=== PATIENT | male | born 1945 | race Caucasian/White ===

== ENCOUNTER 2018-08-24 11:22 | Day surgery (SDC) | payer OTHER, BC ==
[2018-08-24] MEDS ORDERED: ceFAZolin 2 GM/DEXTROSE 100 ML IV ONE (11:35)
[2018-08-24] MEDS ORDERED: ROPIVACAINE 0.2% 80 MG, EPINEPHrine 0.2 MG, KETOROLAC TROMETHAMINE 30 MG in SYRINGE 0 ML IU ONE (11:35)
[2018-08-24] MEDS ORDERED: TRANEXAMIC ACID 3,000 MG in NS (SYRINGE) 50 ML IRR ONE (11:35)
[2018-08-24] MEDS ORDERED: LR 1,000 ML IV ONE (11:36)
[2018-08-24] MEDS ORDERED: LIDOCAINE 1% 2 ML INJ ID PRN (11:36)
[2018-08-24] MEDS ORDERED: LIDOCAINE 1% 300 MG/30 ML SDV ONE (12:07)
[2018-08-24] MEDS ORDERED: BUPIVACAINE/EPI 0.5% 30 ML SDV ONE (12:07)
[2018-08-24] MEDS ORDERED: POLYMYXIN B SULFATE 500,000 UNIT/10 ML SYR IRR ONE (12:08)
[2018-08-24] MEDS ORDERED: BACITRACIN 50,000 UNITS/10 ML SYR IRR ONE (12:08)
[2018-08-24] MEDS ORDERED: oxyCODONE IR 5 MG TAB PO PRN (13:21)
[2018-08-24] MEDS ORDERED: HYDROCODONE/APAP 5/325 TAB PO PRN (13:21)
[2018-08-24] MEDS ORDERED: DEXAMETHASONE 4 MG/ML VIAL IVP PRN (13:21)
[2018-08-24] MEDS ORDERED: NALOXONE HCL 0.4 MG/ML INJ IVP PRN (13:21)
[2018-08-24] MEDS ORDERED: NS 500 ML IV PRN (13:21)
[2018-08-24] MEDS ORDERED: ALBUTEROL 3 ML DEYVIAL IH PRN (13:21)
[2018-08-24] MEDS ORDERED: ACETAMINOPHEN 500 MG TAB PO PRN (13:21)
--- NOTE | 2018-08-24 13:21 | PDANEPAE ---
ANE History of Present Illness here for Knee I and D ANE Past Medical History - Cardiovascular History Hx Hypertension: Yes Hx Arrhythmias: No Hx Chest Pain: No Hx Coronary Artery / Peripheral Vascular Disease: No Hx CHF / Valvular Disease: No Hx Palpitations: No Cardiovascular History Comment: HYPERLIPIDEMIA. pcp monitors bp medications - Pulmonary History Hx COPD: No Hx Asthma/Reactive Airway Disease: No Hx Recent Upper Respiratory Infection: No Hx Oxygen in Use at Home: No Hx Sleep Apnea: No Sleep Apnea Screening Result - Last Documented: Positive Pulmonary History Comment: keo triggers - Neurologic History Hx Cerebrovascular Accident: No Hx Seizures: No Hx Dementia: No - Endocrine History Hx Diabetes: No - Renal History Hx Renal Disorders: No - Liver History Hx Hepatic Disorders: No - Neurological & Psychiatric Hx Hx Neurological and Psychiatric Disorders: No - Cancer History Hx Cancer: No - Congenital Disorder History Hx Congenital Disorders: No - GI History Hx Gastrointestinal Disorders: No - Other Health History Other Health History: wears reading glasses - Chronic Pain History Chronic Pain: Yes (right knee currently) - Surgical History Prior Surgeries: 05/07/16 right knee resurfacing with Junaid. 03/12/16 left TKA with Junaid. ING HERNIA 1999. CYST REMOVED CHEST, NECK 1993. ING HERNIA CHILD. TONSILLECTOMY ANE Review of Systems Review of Systems: - Exercise capacity METS (RN): 4 METS ANE Patient History - Allergies Allergies/Adverse Reactions: No Known Allergies Allergy (Verified 08/23/18 16:26) - Home Medications Home medications: home medication list seen and reviewed Home Medications: Atorvastatin Calcium [Lipitor 20 mg (*)] 04/08/16 [Last Taken 08/20/18] Multivitamins [Multivitamin (*)] 04/08/16 [Last Taken 08/23/18] Quinapril/Hydrochlorothiazide [Quinapril-Hctz 20-12.5 mg Tab] 04/08/16 [Last Taken 08/23/18] Aspirin EC [Aspirin EC 325 mg (*)] 08/23/18 [Last Taken 08/20/18] - NPO status NPO Status: no food or drink >8 hours NPO Since - Liquids (Date): 08/24/18 NPO Since - Liquids (Time): 10:30 NPO Since - Solids (Date): 08/23/18 NPO Since - Solids (Time): 00:00 - Smoking Hx Smoking Status: Never smoked - Family Anes Hx Family Hx Anesthesia Complications: none ANE Labs/Vital Signs - Labs Result Diagrams: 08/24/18 11:55 - Vital Signs Vital Signs: reviewed preoperatively; see RN documention for details Blood Pressure: 149/84 Heart Rate: 61 Respiratory Rate: 15 O2 Sat (%): 95 Height: 182.88 cm Weight: 83.915 kg ANE Physical Exam - Airway Neck exam: FROM Mallampati Score: Class 1 - Pulmonary Pulmonary: no respiratory distress - Cardiovascular Cardiovascular: regular rate and rhythym - ASA Status ASA Status: II ANE Anesthesia Plan Anesthesia Plan: GA w LMA
[2018-08-24] MEDS ORDERED: MIDAZOLAM 2 MG/2 ML VIAL IVP ONE (13:22)
--- NOTE | 2018-08-24 13:26 | PDHPUP ---
History & Physical Update H&P update statement: This history and physical update is based on an assessment of the patient which was completed after admission or registration (within 24 hours), but prior to the surgery/procedure. H&P update: H&P reviewed & patient examined, no change in patient's condition since H&P completed
[2018-08-24] MEDS ORDERED: fentaNYL 100 MCG/2 ML INJ ONE ×3 (13:36→15:11)
[2018-08-24] MEDS ORDERED: PROPOFOL/EMULSION 500 MG/50 ML BOTTLE IV ONE (13:38)
--- NOTE | 2018-08-24 14:55 | POSTOPPROG ---
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
--- NOTE | 2018-08-24 15:06 | POSTANESTH ---
Post Anesthetic Evaluation Cardiovascular Status: Normal, Stable Respiratory Status: Normal, Stable Level of Consciousness/Mental Status: Can Participate in Eval Pain Control: Adequate, Prn Tx Ordered Nausea/Vomiting Control: Adequate, Prn Tx Ordered Complications Possibly Related to Anesthesia: None Noted
[2018-08-24] MEDS: fentaNYL 100 MCG/2 ML INJ IVP PRN ×2 (15:14→15:21)
[2018-08-24] MEDS ORDERED: HYDROmorphONE/DILAUDID 2 MG/ML INJ ONE (15:25)
[2018-08-24] MEDS: HYDROmorphONE/DILAUDID 2 MG/ML INJ IVP PRN ×5 (15:26→16:30)
[2018-08-24] MEDS ORDERED: oxyCODONE IR 5 MG TAB ONE (16:24)
[2018-08-24] MEDS ORDERED: ONDANSETRON 4 MG/2 ML VIAL ONE ×2 (16:39→18:23)
[2018-08-24] MEDS: ONDANSETRON 4 MG/2 ML VIAL IVP PRN ×2 (16:41→18:24)
[2018-08-24 18:54] VITALS: BP 120/80
--- NOTE | 2018-08-26 09:09 | GOP ---
DATE OF OPERATION: 08/24/2018 SURGEON: Kitty Quiroga MD ANESTHESIA: LMA. PREOPERATIVE DIAGNOSIS: Right knee recurrent hemarthroses status post medial compartment partial knee replacement. POSTOPERATIVE DIAGNOSIS: Right knee recurrent hemarthroses status post medial compartment partial knee replacement. PROCEDURE PERFORMED: PROCEDURE: 1. Right knee irrigation and debridement. 2. Lysis of adhesions, right knee. FINDINGS: INDICATIONS: The patient is a gentleman who underwent a right medial compartment partial knee replacement approximately 2 years ago. He was doing very well until he had a traumatic injury over the summer. He has had recurrent hemarthroses with very little trauma since that time. Decision was made to proceed with irrigation and debridement, exploration of the joint, and lysis of adhesions. The patient expressed understanding, and informed consent was obtained. DESCRIPTION OF PROCEDURE: The patient was identified in the preoperative holding area. His right lower extremity was marked. He was then brought back to the operating room. After induction of anesthesia he was positioned on the operative table, prepped and draped in the usual sterile fashion. A nonsterile tourniquet was placed on his right upper thigh. A time-out was taken for patient laterality, procedures, his allergy and antibiotic status. We then elevated the extremity. Tourniquet was up. It was up for a total of 6 minutes. We made our approached, released the tourniquet, and explored for bleeders. There was a copious amount of blood that was evacuated from the space. The knee was copiously irrigated. Scar tissue was removed from the anterior portion of the knee. No definitive source of bleeding was identified, but there was no significant bleeding with the tourniquet down. Any bleeding was coagulated and stopped. The incision was then copiously irrigated. The arthrotomy was closed, and the skin closed in layers. The patient was placed in a sterile dressing, awakened, and brought to PACU in good condition with a well-perfused limb. Plan is for the patient to be weightbearing as tolerated and be discharged home. /[id number]/MODL MTDD
== END 2018-08-24 18:52 | disposition home or self-care (01) ==
LOC: FSGY 11:22
PROVIDERS: ATTEND Orthopaedic Surgery
PROC: 0M9N0ZZ Drainage of Right Knee Bursa and Ligament, Open Approach (ICD-10-PCS; principal; 2018-08-24 13:30)
PROC: 0SNC0ZZ Release Right Knee Joint, Open Approach (ICD-10-PCS; principal; 2018-08-24 13:30)
DX: M25.061 Hemarthrosis, right knee (principal); M17.11 Unilateral primary osteoarthritis, right knee; E78.5 Hyperlipidemia, unspecified
CPT/HCPCS: J0171; J0690; J1170; J1885; J2250; J2405; J2704; J2795; J3010